=== PATIENT | male | born 1980 | race Caucasian/White ===

== ENCOUNTER 2020-11-07 17:59 | Emergency (ER) | payer BC, SELFPAY ==
[2020-11-07 18:10] VITALS: BP 119/72; PULSE 92; RESP 18; TEMP 37.1; O2SAT 100
--- NOTE | 2020-11-07 18:12 | ED.SKABFB ---
HPI - Skin/Abscess/Foreign Bdy General Chief complaint: Skin/Abscess/Foreign Body Stated complaint: Rt buttocks Time Seen by Provider: 11/07/20 18:12 Source: patient Mode of arrival: ambulatory Limitations: no limitations History of Present Illness HPI narrative: Errol Pierce is a 40 yo male with a PMH of hypertension and states that he has a boil on his lower right butt cheek that has been developing since a week and states he was having chills and decided to come in to have it looked at. He went to his '[facility] [employer] where she is a [employer], got swabbed for Covid today which was negative but it was only a rapid test. He is a current smoker Related Data Home Medications Medication Instructions Recorded Confirmed amlodipine 10 mg PO DAILY 11/07/20 11/07/20 carvedilol 3.125 mg PO BID 11/07/20 11/07/20 divalproex 125 mg PO DAILY 11/07/20 11/07/20 hydrochlorothiazide 25 mg PO DAILY 11/07/20 11/07/20 losartan 50 mg PO DAILY 11/07/20 11/07/20 risperidone 1.5 mg PO HS 11/07/20 11/07/20 sertraline 100 mg PO DAILY 11/07/20 11/07/20 Allergies Allergy/AdvReac Type Severity Reaction Status Date / Time No Known Allergies Allergy Unknown Verified 11/07/20 18:23 Review of Systems Review of Systems: CONSTITUTIONAL: Planing of, chills, sweats. EYES: Denies visual changes, redness, discharge. ENT: Denies rhinorrhea, congestion, sore throat, otalgia. CARDIOVASCULAR: Denies chest pain, palpitations, edema. RESPIRATORY: Denies dyspnea, wheezing, cough GASTROINTESTINAL: Denies abdominal pain, nausea, vomiting, diarrhea. GENITOURINARY: Denies dysuria, hematuria, abnormal discharge SKIN: Denies rash or itching. Is developing boil on his right buttock NEUROLOGIC: Denies numbness, or focal weakness. PSYCHIATRIC: Denies anxiety or depression. [facility] Past Medical History Medical History Hypertension Family History Family History (Updated 11/07/20 @ 18:27 by Vidhi Faustin CNP) Other Hypertension Social History Social History (Updated 11/07/20 @ 18:27 by Vidhi Faustin CNP) Smoking packs per day: 0.5 Smoking cigarettes per day: 10.0 Smoking status: Current every day smoker Alcohol intake: current Comments At time of signature, I agree with nursing past medical, surgical, social and family history. There is no relevant family history pertinent to the presenting complaint. Exam Narrative: GENERAL: This is a well-nourished, well-developed patient, in mild distress. HEAD: normocephalic, atraumatic. EYES: PERRL. Sclera clear/white. Vision is grossly intact. EARS: External ears normal, auditory canals clear and without drainage, TMs normal without perforation. Hearing grossly intact. NOSE: External nose normal without nasal discharge, nares without redness, no rhinorrhea. THROAT: Mucous membranes moist, NECK: Neck supple, non-tender CARDIOVASCULAR: Regular rate and rhythm without murmurs, gallops, or rubs. RESPIRATORY: Clear to auscultation. Breath sounds equal bilaterally. No wheezes, rales, or rhonchi. GASTROINTESTINAL: Abdomen soft, non-tender, SKIN: warm, intact with 4/3 area of erythema and tenderness in perineum behind scrotum, old scar alla, has external hemorrhoid NEURO: awake, alert, and oriented to person, place and time. There were no obvious focal neurologic abnormalities. Steady gait EXTREMITIES: Normal range of motion. BACK: Nontender without deformity Course Course Emergency Course: Patient comes with potential cellulitis or abscess on the right lower cheek near the anus Try to aspirate area for pus but there was only blood Started on clindamycin instead of Bactrim because of the interaction with losartan patient was in the hospital in May for atrial flutter and they put him on full blood pressure medication so I change the antibiotic and started and explained this to the patient; also given tramadol for pain Vital Signs Vital si
== END 2020-11-07 18:56 | disposition home or self-care (01) ==
PROVIDERS: Emergency Provider Nurse Practitioner
DX: L03.317 Cellulitis of buttock (principal); F17.210 Nicotine dependence, cigarettes, uncomplicated; I10 Essential (primary) hypertension
CPT/HCPCS: 10160; 99213; G0463